=== PATIENT | female | born 1955 | race Caucasian/White ===

== ENCOUNTER 2019-04-19 09:41 | Day surgery (SDC) | payer OTHER ==
[~2019-04-19] VITALS: Ht 160 cm; Wt 52.6 kg
[~2019-04-19 09:41] MED LIST: APAP650 PO; DULERA 200 MCG/13 GM INH; EPCLUSA 400 MG1 EACH PO; FLEXERIL PO; MOBIC15 MG PO; NASONEX17 GM NASAL; OMEPRAZOLE 20 M20 M1 PO; PRINIVIL20 M1 PO; PROAIR HFA8.5 GM INH; SPIRIVA INH; UNICOMPLEX M TA1 TA1 PO; XANAX 0.25 MG0.25 MG PO; ZYRTEC10 M5 PO
[2019-04-19 10:41] VITALS: BP 114/79
--- NOTE | 2019-04-23 06:49 | O ---
[facility] [place] [address] OPERATIVE REPORT Name: NICK HANDY Room #: DEP [facility].#: [id number] Admission: 04/19/19 Attend Phys: Derek Ward MD Discharge: 04/19/19 Date of : 55 Report #: [id number] THIS REPORT FOR: //name// CC: Joni Sandoval COLLABORATING SUPERVISING PHYSICIAN Derek Ward DATE OF SERVICE: 04/19/2019 SURGEON: Derek Ward MD NEGATIVE RETOUCHER: None. PREOPERATIVE DIAGNOSIS: Bilateral lower lid ectropion. POSTOPERATIVE DIAGNOSIS: Bilateral lower lid ectropion. OPERATION PERFORMED: Bilateral lower lid ectropion repair. ANESTHESIA: Local with IV sedation. COMPLICATIONS: None. INDICATIONS FOR PROCEDURE: This patient has bilateral acquired lower lid ectropion with chronic tearing, keratopathy and discharge. The current procedures are undertaken in order to improve the patient's visual function, lacrimal outflow, and level of comfort. Informed consent was obtained to include but not limit to the risk of loss of vision, bleeding, infection, scarring, failure to improve the problem and need for further surgery. DESCRIPTION OF OPERATION: The patient was taken to the operating room where 2% Xylocaine with epinephrine mixed with equal parts of 0.75% Marcaine with Wydase was administered transcutaneously and transconjunctivally to each lower lid and lateral canthal area. The patient was then prepped and draped in the usual sterile fashion. A Carmen clamp was then used to clamp the left lateral canthus following which a sharp canthotomy and cantholysis were performed. The tarsal strip was prepared laterally, removing the lash bearing portion of the redundant lid margin and the redundant tarsal plate. Hemostasis was achieved with a monopolar cautery, as it was throughout the case. The tarsal strip was then secured to the internal portion of the lateral orbital tubercle with two interrupted 5-0 Prolene sutures. The lateral canthal angle was sharply reformed as the subcutaneous structures and the skin were closed with multiple interrupted 6-0 plain gut sutures. Attention was then turned to the right side where the same procedure was performed. The wounds were cleaned and dressed with ophthalmic antibiotic [address] [address] OPERATIVE REPORT Name: NICK HANDY Room #: DEP [facility].#: [id number] Admission: 04/19/19 Attend Phys: Derek Ward MD Discharge: 04/19/19 Date of : 55 Report #: [id number] ointment. The patient was then transported to the recovery area, having tolerated the procedure well with no anesthetic or operative complications being noted. <ELECTRONICALLY SIGNED> By: Derek Ward MD 04/23/19 [id number] Derek Ward MD /nt
== END 2019-04-19 12:50 | disposition home or self-care (01) ==
LOC: TBA 09:41 → OR 09:41
DX: H02.102 Unspecified ectropion of right lower eyelid (principal); H02.105 Unspecified ectropion of left lower eyelid; H18.9 Unspecified disorder of cornea; I10 Essential (primary) hypertension; J43.9 Emphysema, unspecified; F32.9 Major depressive disorder, single episode, unspecified; F41.9 Anxiety disorder, unspecified; F17.210 Nicotine dependence, cigarettes, uncomplicated; K21.9 Gastro-esophageal reflux disease without esophagitis; M19.90 Unspecified osteoarthritis, unspecified site; M81.0 Age-related osteoporosis without current pathological fracture; B19.20 Unspecified viral hepatitis C without hepatic coma; Z98.890 Other specified postprocedural states; Z79.899 Other long term (current) drug therapy; Z88.0 Allergy status to penicillin; Z88.8 Allergy status to other drugs, medicaments and biological substances
CPT/HCPCS: 50010; 50101; 50386; 50398; 51636; 56527; 56531; 62110; 62850; 70005